=== PATIENT | female | born 1980 | race Caucasian/White ===

== ENCOUNTER 2019-11-29 16:18 | Outpatient (CLI) | payer BC, SELFPAY | END 2019-11-29 16:19 | disposition home or self-care (01) | PROVIDERS: Visit Provider Urology | DX: N39.3 Stress incontinence (female) (male) (principal) | CPT/HCPCS: 87086; 87088 ==

== ENCOUNTER 2019-12-03 01:22 | Day surgery (SDC) | payer BC, SELFPAY ==
[2019-11-22 15:28] VITALS: BMI 21.3
[2019-12-03 06:56] VITALS: BP 115/67; PULSE 86; RESP 18; TEMP 37; O2SAT 97
[2019-12-03] MEDS: LACTATED RINGERS 1,000 ML 30 ML IV CONT (06:56)
--- NOTE | 2019-12-03 07:21 | P.PNAN_ITS ---
Anes - Initial Pre Proc Eval Procedure: Operation Date: 12/03/19 08:00 Proposed Procedures p Urethral Sling - Raymond Cruz MD Date/Time: 12/03/19 07:21 Surgeon: Raymond Cruz MD Pre Op Diagnosis: Stress Incontinence Patient Data Age: 39 Gender: F Height: 1.7 m Weight: 61.8 kg Allergies Allergy/AdvReac Type Severity Reaction Status Date / Time ciprofloxacin [From Cipro] AdvReac Intermediate Nausea and Verified 11/22/19 15:36 Vomiting Home Medications Medication Instructions Recorded Confirmed Type citalopram 20 mg PO DAILY 11/22/19 11/22/19 History levothyroxine 25 mcg PO DAILY 11/22/19 11/22/19 History Patient hx anesthesia problems: none Family hx anesthesia problems: none [facility] Past Medical History Medical History (Updated 12/02/19 @ 08:32 by Suleman Banuelos DO) Depression Hypothyroidism Surgical History Surgical History (Updated 12/02/19 @ 08:32 by Suleman Banuelos DO) History of thyroidectomy Social History Social History Gender identity (if verbalized by the patient): Female Anes - Eval Final PreProcedure Day of Procedure 12/03/19 07:21 Patient weight: normal Heart: regular rate and rhythm Lungs: clear to auscultation and normal air movement Airway: Mallampati scale class II Neurological: alert and oriented Last oral intake: >/= 8 hours ASA classification: II Emergent: no Anesthetic plan: proceed Anesthesia type and monitoring: general GIVS and standard monitoring Informed Consent: The patient's anesthetic plan and its attendant risks and benefits were discussed with the patient/family/POA. Questions were solicited and answers provided to the satisfaction of the patient/family/POA.
--- NOTE | 2019-12-03 07:24 | WPDHPUPDATE1 ---
History and Physical Update Update Date/Time: 12/03/19 07:24 History and Physical has been reviewed, including an updated exam of the patient. There are NO changes in the patient's condition. Risks, benefits, and alternatives have been discussed and questions answered. Patient agrees to proceed with procedure.
[2019-12-03] MEDS: ceFAZolin 2 GM/D5W 50 ML 2 GM/50 ML BAG IVPB (07:57)
[2019-12-03] MEDS: BUPIVACAINE/EPINEPHRINE 0.25% 50 ML VIAL 30 ML INFILTRATE (08:06)
[2019-12-03 08:25] VITALS: BP 135/72; PULSE 72; RESP 18; O2SAT 100
--- NOTE | 2019-12-03 08:27 | PM.PROC ---
Procedure Note - Detailed Date of procedure: 12/03/19 Pre-op diagnosis: Stress Incontinence Stress urinary incontinence Post-op diagnosis: same Procedure performed: Transobturator Mid-urethral sling Cystoscopy Description of procedure: This is a patient with confirmed stress urinary incontinence. She desires correction. She understands the risks of bleeding, infection, damage to the urinary tract, lack of cure of stress incontinence, recurrence of stress incontinence, postoperative voiding dysfunction including incontinence and retention, need for ancillary procedures to loosen remove the sling, postoperative voiding dysfunction including retention and overactive bladder, hip and leg pain, dyspareunia, mesh related complications including exposure and extrusion. She agrees to proceed. She understands it will not help overactive bladder symptoms if present. She was correctly identified and informed consent obtained. She is brought to the operating room. She was given appropriate anesthesia. She was placed in the dorsal lithotomy position. All pressure points were padded. She was given appropriate perioperative antibiotics and a time-out performed. A Diez catheter is placed. I marked out the thigh incisions anesthetize the skin and made those incisions. I anesthetized the anterior vaginal wall over the mid urethra. I made a 1 cm incision. I dissected out laterally taking great care not to injure the urethra or the vaginal wall. Passed the helical trocars 1st on the left and then on the right from the thigh incision towards the vaginal incision. Sling was connected to the trocars and brought out through the thigh incision. I tensioned the sling appropriately. I cut and removed the plastic sheaths. I closed the incision with 2 0 Vicryl. I then performed cystoscopy. There was no surgical artifact or abnormalities inside the bladder. The urethra was normal without surgical artifact. I cut the excess sling material. I closed the incisions with glue. She was awakened and transferred to the PACU in stable condition. Implants: Mid urethral sling Surgeon: Raymond Cruz MD Drains: No Packing: No Pathology: none sent Complications: No immediate complications Condition: stable Disposition: PACU
[2019-12-03 09:00] VITALS: BP 101/64; PULSE 65
[2019-12-03 09:30] VITALS: BP 117/87; PULSE 77
== END 2019-12-03 09:41 | disposition home or self-care (01) ==
PROVIDERS: PCP Family Medicine; Visit Provider Urology
PROC: (CPT 57288; principal; 2019-12-03 08:00)
DX: N39.3 Stress incontinence (female) (male) (principal); F32.9 Major depressive disorder, single episode, unspecified; E89.0 Postprocedural hypothyroidism
CPT/HCPCS: 57288; A9270; C1771; J0690; J2250; J2704; J3010; J7030; J7120